=== PATIENT | male | born 1940 | race Caucasian/White ===

== ENCOUNTER 2018-01-06 08:19 | Inpatient (IN) | payer MEDICARE, OTHER ==
[~2018-01-06] VITALS: Ht 180.3 cm; Wt 110.2 kg
--- NOTE | ~2018-01-06 | HEMODYNAMI ---
PATIENT:ELISSA BABCOCK MEDICAL RECORD: [id number] : 40 LOCATION:[address] ADMISSION DATE: 01/06/18 Generatedon:01/08/201813:55 Patient name: ELISSA BABCOCK Patient #: [id number] SSN: : 1940 Date of study: 01/08/2018 Page: Of Hemodynamic Procedure Report Patient Data Patient Demographics Procedure consent was obtained First Name: ELISSA Gender: Male Last Name: YOKO : 1940 Patient #: [id number] Age: 77 year(s) Race: Unknown Additional ID: [id number] Contact details [address]: [address] [place] [address] State: [place] City: [place] Zip code: [address] Admission Admission Data Admission Date: 01/06/2018 Admission Time: 10:33 Room #: D.2120 Height (in.): 70.87 BSA: 2.28 (m2) Height (cm.): 180 BMI: 33.64 (kg/m2) Weight (lbs.): 240.31 Weight (kg.): 109 Procedure Procedure Types Cath Procedure Diagnostic Procedure Sedation Charges Moderate Sedation up to 45 minutes PCI Procedure Coronary Stent Coronary Stent Initial AMI/SVG/GRAVITY PROSPECTING OBSERVER HELPER PTCA or Stent SVG-BMS/KAYLEEN Initial Procedure Description Procedure Date Procedure Date: 01/08/2018 Procedure Start Time: 13:09 Procedure End Time: 13:48 Procedure Staff Name Function Mohan Toth MD Performing Physician Patrica Rea RT Monitor Rox Ordaz RN Nurse Olimpia Galo RT Scrub Procedure Data Cath Procedure Fluoroscopy Diagnostic fluoroscopy Total fluoroscopy Time: 9 time: 9 min min Diagnostic fluoroscopy Total fluoroscopy dose: dose: 1824 mGy 1824 mGy Contrast Material Contrast Material Type Amount (ml) Isovue 300 136 Entry Location Entry Primary Successful Side Size Upsize Upsize Entry Closure Succes sful Closure Location (Fr) 1 (Fr) 2 (Fr) Remarks Device Remarks Femoral Right 6 Fr Exoseal artery Short Estimated blood loss: 10 ml Procedure Complications No complications Procedure Medications Medication Administration Route Dosage Oxygen NC 2 l/min Lidocaine 2% added to field 20 Heparin Flush Bag added to field 2 bags (1000units/500ml NS) 0.9% NaCl I.V. 100 ml/hr Cardizem I.V. drip 2.5 mg/hr (125mg/125ml NS) Versed I.V. 1 mg Fentanyl I.V. 50 mcg Heparin Bolus I.V. 43387 units Versed I.V. 1 mg Fentanyl I.V. 50 mcg Nitroglycerin IC/IA I.C. 100 mcg Versed I.V. 1 mg Plavix P.O. 600 mg Hemodynamics Rest BSA: 2.28 (m2) O2 Consumption: Estimated: 284.39 (ml/min) O2 Consumption indexed : Estimated:124.73 (ml/min/m) Heart Rate: 97 (bpm) Snapshots Pre Cath Intra NCS Post Cath Vital Signs Time Heart Resp SPO2 etCO2 NIBP (mmHg) Rhythm Pain Sedation Rate (ipm) (%) (mmHg) Status Level (bpm) 13:02:40 93 22 98 25.6 168/79(133) A-Flutter 0 (11) 10(A) , No pain 13:07:04 79 18 93 0 142/64(104) A-Flutter 0 (11) 10(A) , No pain 13:11:14 84 14 94 8.2 142/83(97) A-Flutter 0 (11) 10(A) , No pain 13:15:30 72 12 98 0 130/77(102) A-Flutter 0 (11) 9(A) , No pain 13:20:31 90 17 99 11.3 161/116(133) A-Flutter 0 (11) 9(A) , No pain 13:24:43 96 17 98 1.5 127/57(91) A-Flutter 0 (11) 9(A) , No pain 13:29:01 99 19 95 26.3 137/61(81) A-Flutter 0 (11) 9(A) , No pain 13:33:13 108 19 98 24.8 137/86(127) A-Flutter 0 (11) 9(A) , No pain 13:37:29 98 18 95 17.3 114/72(95) A-Flutter 0 (11) 9(A) , No pain 13:41:30 97 19 98 25.6 132/90(105) A-Flutter 0 (11) 9(A) , No pain 13:45:38 90 23 98 26.3 152/96(112) A-Flutter 0 (11) 10(A) , No pain 13:54:18 90 16 99 28.6 145/77(124) A-Flutter 0 (11) 10(A) , No pain Medications Time Medication Route Dose Verified Delivered Reason Notes Effectiveness by by 12:58:23 Oxygen NC 2 Mohan Buffie used for l/min Carlos Ordaz RN procedure 12:58:30 Lidocaine 2% added 20ml Mohan Mohan for local to vial Carlos Toth MD anesthetic field 12:58:36 Heparin Flush added 2 Mohan Mohan used for Bag to bags Carlos Toth MD procedure (1000units/500ml field NS) 12:58:46 0.9% NaCl I.V. 100 Mohan Buffie Per physician ml/hr Carlos Ordaz RN 13:01:18 Cardizem I.V. 2.5 Mohan Buffie Per physician (125mg/125ml NS) drip mg/hr Carlos Ordaz RN 13:04:48 Versed I.V. 1 mg Mohan Buffie for sedation Carlos Ordaz RN 13:04:54 Fentanyl I.V. 50 Mohan Buffie for sedation mcg Carlos Ordaz RN 13:12:49 Heparin [place]us I.V. 96516 Mohan Buffie for verifi ed units Carlos Ordaz RN anticoagulation with dr toth 13:22:00 Versed I.V. 1 mg Mohan Buffie for sedation Carlos Ordaz RN 13:22:05 Fentanyl I.V. 50 Mohan Buffie for sedation mcg Carlos Ordaz RN 13:24:10 Nitroglycerin I.C. 100 Mohan Mohan for IC/IA mcg Carlos red 13:31:30 Versed I.V. 1 mg Mohan Buffie for sedation Carlos Ordaz RN 13:48:02 Plavix P.O. 600 Mohan Buffie for mg Carlos Ordaz RN antiplatelet therapy Procedure Log Time Note 12:37:47 Patient Height : 70.87 inches 12:37:47 Patient Weight : 240.31 lbs 12:38:22 Diagnostic Cath status Elective 12:38:24 Patrica Rea RT(R) sent for patient. Start room use. 12:38:26 Time tracking: Regular hours (M-F 7:00 - 5:00) 12:38:31 Plan of Care:Hemodynamics will remain stable., Cardiac rhythm will remain stable., Comfort level will be maintained., Respiratory function will remain adequate., Patient/ family verbilizes understanding of procedure., Procedure tolerated without complication., Recovers from procedure without complications.. 12:47:23 Patient received from Pre/Post Procedure Room to CCL 2 Alert and oriented. Tansferred to table in Supine position. 12:47:25 Warm blankets applied, and mel hugger turned on for patient comfort. 12:47:25 Correct patient and procedure confirmed by team. 12:47:27 Signed procedure consent form obtained from patient. 12:47:28 ECG and BP/O2 sat monitors applied to patient. 12:47:34 H&P Date Dictated: 01/06/2018 Within 30 days and on chart., H&P Addendum completed by physician on day of procedure. (MUST COMPLETE FOR ALL OUTPATIENTS). 12:47:45 Pre-procedure instructions explained to patient. 12:49:48 Family in waiting room. 12:49:50 Patient NPO since Midnight. 12:50:01 Is the patient allergic to Iodine/contrast media? No. 12:50:04 Was the patient premedicated? Yes 12:50:05 Is patient on blood thinner?No 12:50:12 Patient diabetic? Yes. 12:50:17 If diabetic: On Metformin? No 12:50:26 Snore? Yes 12:50:34 Sleep apnea? No 12:50:36 Deviated septum? No 12:50:37 Opens mouth fully? No 12:50:40 Sticks out tongue? Yes 12:50:49 Dentures? Yes tight 12:58:23 Oxygen 2 l/min NC was administered by Rox Ordaz RN; used for procedure; 12:58:30 Lidocaine 2% 20ml vial added to field was administered by Mohan Toth MD; for local anesthetic; 12:58:36 Heparin Flush Bag (1000units/500ml NS) 2 bags added to field was administered by Mohan Toth MD; used for procedure; 12:58:46 0.9% NaCl 100 ml/hr I.V. was administered by Rox Ordaz RN; Per physician; 12:59:29 Patient pain scale 0/10 ?. 12:59:35 IV patent on arrival in left forearm with 0.9% NaCl at KVO. 12:59:39 Lab results completed and on chart. 12:59:43 Right groin area was prepped with chlora-prep and draped in sterile fashion 12:59:44 Alarms reviewed by R. N. 12:59:45 Sharps counted by scrub and verified by R.N. 12:59:45 Physician paged 12:59:46 Physician arrived 12:59:47 --------ALL STOP TIME OUT------ 12:59:47 Final Timeout: patient, procedure, and site verified with staff and physician. All members of the team are in agreement. 12:59:49 Right groin site verified by team. 12:59:53 Physical assessment completed. ASA score P 2 - A patient with mild systemic disease as per Mohan Toth MD. 12:59:57 Sedation plan: IV Moderate Sedation Medication:Versed, Fentanyl 13:00:32 Use device set TOTH PCI 13:00:44 Use device set Femoral Dx 13:00:52 TUBING High Pressure Extension Tubing (Carlos) ([id number]) opened to sterile field. 13:00:53 INFLATOR Merit BasixCompak ([id number]) opened to sterile field. 13:00:57 BMW 300cm [place] 2 J wire ([id number]) opened to sterile field. 13:01:06 ACIST Syringe (00719) opened to sterile field. 13:01:07 Bag Decanter (2002S) opened to sterile field. 13:01:08 Medline Cath Pack ([id number]) opened to sterile field. 13:01:08 DIAGNOSTIC WIRE .035 260cm J wire (047105) opened to sterile field. 13:01:10 ACIST Hand Control (76936) opened to sterile field. 13:01:11 ACIST Manifold (34662) opened to sterile field. 13:01:12 Tegaderm 4 x 4 (1626W) opened to sterile field. 13:01:15 PERCUTANEOUS ENTRY 19GA needle opened to sterile field. 13:01:18 Cardizem (125mg/125ml NS) 2.5 mg/hr I.V. drip was administered by Rox Ordaz RN; Per physician; 13:01:22 Vital chart was started 13:01:28 Baseline sample Acquired. 13:01:31 Full Disclosure recording started 13:04:48 Versed 1 mg I.V. was administered by Rox Ordaz RN; for sedation; 13::54 Fentanyl 50 mcg I.V. was administered by Rox Ordaz RN; for sedation; 13:09:36 Procedure started. 13:09:45 Local anesthetic to right femoral artery with Lidocaine 2% by Mohan Toth MD.INITIAL ACCESS ONLY 13:09:57 A 6 Fr Short sheath was inserted into the Right Femoral artery 13:10:05 Proceeding to intervention. 13:10:38 Zero performed for pressure channel P1 13:10:56 Zero performed for pressure channel P1 13:12:17 Quick Combo opened to sterile field. 13:12:27 GUIDE 6FR AR 1.0 catheter ([id number]) opened to sterile field. 13:12:49 Heparin Bolus 15703 units I.V. was administered by Rox Ordaz RN; for anticoagulation; verified with dr toth 13:12:53 6 Fr AR1 guide catheter was inserted over the wire 13:13:35 BMW 300cm [place] 2 J wire ([id number]) opened to sterile field. 13:14:20 BMW wire advanced. 13:14:49 Wire advanced across lesion. 13:15:57 Study PCI Site: [place] LMCA has ?% stenosis. 13:16:22 Study PCI Site: Vein Graft dLAD has 80% stenosis. 13:18:49 Place stent Inflation Number: 1 A BLANCA OTW 2.25 x 15 stent ([id number]) was prepped and advanced across the Aorta Left -> Dist LAD. The stent was deployed at 12 [place] for 0:13 (min:sec). 13:19:26 Stent catheter was removed intact over wire. 13:21:13 Guide catheter removed. 13:21:42 LUGE Straight 300cm 0.014 guide wire ([id number]) opened to sterile field. 13:22:00 Versed 1 mg I.V. was administered by Rox Ordaz RN; for sedation; 13:22:02 6 Fr EBU3.5 guide catheter was inserted over the wire 13:22:05 Fentanyl 50 mcg I.V. was administered by Rox Ordaz RN; for sedation; 13:24:10 Nitroglycerin IC/IA 100 mcg I.C. was administered by Mohan Toth MD; for vasodilation; 13:24:11 LUGE wire advanced. 13:24:32 Study PCI Site: [place] LMCA has 90% stenosis. 13:26:54 Luge wire advanced to LAD and BMW to CX 13:30:46 Inflate balloon Inflation number: 1 A EMERGE OTW 3.0 x 20 balloon ([id number]) was prepped and advanced across the LMCA, then inflated to 10 MADONNA for 0:18 (min:sec). 13:31:30 Versed 1 mg I.V. was administered by Rox Ordaz RN; for sedation; 13:32:02 Balloon removed over the wire. 13:34:27 Luge wire removed from LAD 13:37:51 The BLANCA OTW 3.5 x 26 stent ([id number]) was advanced then removed because in body, not inflated 13:41:09 Place stent Inflation Number: 2 A BLANCA OTW 3.5 x 34 stent ([id number]) was prepped and advanced across the LMCA. The stent was deployed at 12 MADONNA for 0:16 (min:sec). 13:42:47 EXOSEAL 6Fr (EX600) opened to sterile field. 13:42:55 Stent catheter was removed intact over wire. 13:42:56 Wire removed. 13:42:57 Guide catheter removed. 13:44:20 Sheath removed intact; hemostasis achieved with Exoseal to the Right Femoral artery. 13:44:29 Procedure ended.(Physican Out) 13:44:43 Fluoroscopy time 09.00 minutes. 13:44:48 Fluoroscopy dose: 1824 mGy 13:44:48 Flurop Dose total: 1824 13:44:52 Contrast amount:Isovue 300 136ml. 13:44:53 Sharps counted by scrub and verified by R.N. 13:44:55 Insertion/operative site no bleeding no hematoma. 13:45:34 Post Procedure Pulses reassessed and unchanged 13:45:38 Post-procedure physical assessment completed. ASA score P 2 - A patient with mild systemic disease as per Mohan Toth MD. 13:45:46 Post procedure rhythm: unchanged. 13:45:50 Estimated blood loss: 10 ml 13:46:37 Procedure type changed to Cath procedure, Diagnostic procedure, Sedation Charges, Moderate Sedation up to 45 minutes, PCI procedure, Coronary Stent, Coronary Stent Initial, AMI/SVG/GRAVITY PROSPECTING OBSERVER HELPER PTCA or Stent, SVG-BMS/KAYLEEN Initial 13:46:41 Procedure and supply charges have been captured, reviewed, submitted and are correct. 13:47:54 Procedure Complication : No complications 13:47:57 Vital chart was stopped 13:48:02 Plavix 600 mg P.O. was administered by Rox Ordaz RN; for antiplatelet therapy; 13:48:03 Patient transfered to [facility] with Bed. 13:48:05 Procedure ended. 13:48:05 Full Disclosure recording stopped 13:48:09 End room use (Document Last) 13:48:22 ACC-PCI Only Patient was given prescriptions, or instructed by Mohan Toth MD to start/continue the following medications upon discharge: Plavix Intervention Summary Intervention Notes Time ActionType Lesion and Equipment Action# Pressure Duration Attributes Used 13:18:49 Place stent Aorta Left BLANCA OTW 2.25 1 12 00:13 -> Dist LAD x 15 stent ([id number]) 13:30:46 Inflate LMCA EMERGE OTW 1 10 00:18 balloon 3.0 x 20 balloon ([id number]) 13:37:51 Discard BLANCA OTW 3.5 Stent x 26 stent ([id number]) 13:41:09 Place stent LMCA BLANCA OTW 3.5 2 12 00:16 x 34 stent ([id number]) Device Usage Item Name Manufacture Quantity Catalog Number [facility] Lot# / Charge Number Stock Stock Serial# Code TUBING High Merit 1 [id number] 219063 39827 892278 10 Pressure Medical Extension Tubing (Carlos) ([id number]) INFLATOR Merit 1 [id number] 892128 872401 122303 15 Merit Medical BasixCompak (OF2873) BMW 300cm Maria 2 [id number] 438246 926127 319048 5 [place] 2 J Vascular wire ([id number]) ACIST Syringe Acist 1 89216 497032 324835 365685 20 (95792) Medical Systems Inc Bag Decanter Microtek 1 2001S 085059 61909 335188 5 (2001S) Medical Inc. Medline Cath Cardinal 1 [id number] 069485 16617 788458 5 Pack Health ([id number]) DIAGNOSTIC St Juan[place] 1 059517 875615 304232 921489 30 WIRE .035 260cm J wire (336370) ACIST Hand Acist 1 30867 486841 578400 633517 5 Control Medical (77771) Systems Inc ACIST Acist 1 73559 444801 267102 691561 5 Manifold Medical (85602) Systems Inc Tegaderm 4 x 3M 1 1626W 741575 472890 656903 5 4 (1626W) PERCUTANEOUS Cook Medical 1 J52550 955398 063875 5 ENTRY 19GA needle Quick Reissued 1 90396-332376 602914 075764 150836 5 GUIDE 6FR AR Medtronic 1 [id number] 845771 78991 974663 1 1.0 catheter (NU3QM57) BLANCA OTW 2.25 Medtronic 1 [id number] 655414 69964 560762 5 [id number] x 15 stent ([id number]) LUGE Straight [place] 1 [id number] 419814 906439 046148 5 300cm 0.014 Scientific guide wire (47046407) EMERGE OTW [place] 1 [id number] 547006 196857 194768 5 [id number] 3.0 x 20 Scientific balloon ([id number]) BLANCA OTW 3.5 Medtronic 1 [id number] 410312 3039261 086966 5 [id number] x 26 stent ([id number]) BLANCA OTW 3.5 Medtronic 1 [id number] 673938 6896649 761663 5 [id number] x 34 stent ([id number]) EXOSEAL 6Fr Cardinal 1 EX600 391788 111181 351989 10 (EX600) Health Signature Audit Media Stage Time Signature Unsigned Intra-Procedure 01/08/2018 Patrica Rea 1:55:28 PM RT(R) Signatures Monitor : Patrica Rea Signature : RT Date : Time : [address] [place] [address]
--- NOTE | ~2018-01-06 | HEMODYNAMI ---
PATIENT:ELISSA BABCOCK MEDICAL RECORD: [id number] : 40 LOCATION:[address] ADMISSION DATE: 01/06/18 Generatedon:01/07/201811:56 Patient name: ELISSA BABCOCK Patient #: [id number] SSN: : 1940 Date of study: 01/07/2018 Page: Of Hemodynamic Procedure Report Patient Data Patient Demographics Procedure consent was obtained First Name: ELISSA Gender: Male Last Name: YOKO : 1940 Patient #: [id number] Age: 77 year(s) Race: Unknown Additional ID: [id number] Contact details [address]: [address] [place] [address] State: [place] City: [place] Zip code: [address] Admission Admission Data Admission Date: 01/06/2018 Admission Time: 10:33 Room #: D.2120 Height (in.): 70.87 BSA: 2.28 (m2) Height (cm.): 180 BMI: 33.64 (kg/m2) Weight (lbs.): 240.31 Weight (kg.): 109 Procedure Procedure Types Cath Procedure Diagnostic Procedure [facility] w/Coronaries Sedation Charges Moderate Sedation up to 15 minutes Procedure Description Procedure Date Procedure Date: 01/07/2018 Procedure Start Time: 11:30 Procedure End Time: 11:54 Procedure Staff Name Function Mohan Gonzalez MD Performing Physician Patrica Rea RT Monitor Rox Ordaz RN Nurse Olimpia Galo RT Scrub Procedure Data Cath Procedure Fluoroscopy Diagnostic fluoroscopy Total fluoroscopy Time: 4.1 time: 4.1 min min Diagnostic fluoroscopy Total fluoroscopy dose: dose: 1006 mGy 1006 mGy Contrast Material Contrast Material Type Amount (ml) Isovue 300 116 Entry Location Entry Primary Successful Side Size Upsize Upsize Entry Closure Succes sful Closure Location (Fr) 1 (Fr) 2 (Fr) Remarks Device Remarks Femoral Right 5 Fr Exoseal artery Estimated blood loss: 10 ml Diagnostic catheters Device Type Used For End Catheter Placement MULTIPACK JL 4.0 5Fr Procedure catheter MULTIPACK 3DRC 5Fr Procedure catheter DIAGNOSTIC IMT 5Fr Procedure Catheter ([id number]) DIAGNOSTIC AR MOD 5Fr Procedure Catheter ([id number]) MULTIPACK Pigtail 5 Fr Procedure catheter Procedure Complications No complications Procedure Medications Medication Administration Route Dosage Oxygen NC 2 l/min Lidocaine 2% added to field 20 Heparin Flush Bag added to field 2 bags (1000units/500ml NS) 0.9% NaCl I.V. 100 ml/hr Versed I.V. 1 mg Fentanyl I.V. 50 mcg Versed I.V. 1 mg Fentanyl I.V. 50 mcg Hemodynamics Rest BSA: 2.28 (m2) O2 Consumption: Estimated: 284.57 (ml/min) O2 Consumption indexed : Estimated:124.81 (ml/min/m) Heart Rate: 97 (bpm) Pressure Samples Time Site Value (mmHg) Purpose Heart Use Rate(bpm) 11:44 LV 184/1,12 Snapshot 97 11:44 AO 132/85(103) Pullback 101 11:44 LV 214/15,82 Pullback 101 Gradients Valve Time Site 1 Site 2 Mean SEP/DFP Peak To Heart Use (mmHg) (sec/min) Peak Rate (mmHg) (bpm) Aortic 11:44 LV AO 34 21 82 101 214/15,82 132/85(103) Calculations Valve P-P Mean Valve Index Valve Source Name Gradient Area Flow (cm2) Aortic 82 34 82 34 Snapshots Pre Cath Intra NCS Post Cath Vital Signs Time Heart Resp SPO2 etCO2 NIBP (mmHg) Rhythm Pain Sedation Rate (ipm) (%) (mmHg) Status Level (bpm) 11:24:42 88 19 95 26.4 140/97(129) A-Flutter 0 (11) 10(A) , No pain 11:28:44 86 15 94 12 131/90(111) A-Flutter 0 (11) 10(A) , No pain 11:32:54 88 16 96 27.1 137/67(119) A-Flutter 0 (11) 9(A) , No pain 11:37:03 84 16 95 27.1 137/90(115) A-Flutter 0 (11) 9(A) , No pain 11:41:11 101 16 98 29.4 132/94(106) A-Flutter 0 (11) 9(A) , No pain 11:45:17 112 20 96 34.7 141/95(106) A-Flutter 0 (11) 9(A) , No pain 11:49:27 126 21 96 34.7 146/91(101) A-Flutter 0 (11) 10(A) , No pain 11:53:41 129 25 95 32.4 138/86(111) A-Flutter 0 (11) 10(A) , No pain Medications Time Medication Route Dose Verified Delivered Reason Notes Effe ctiveness by by 11:16:46 Oxygen NC 2 Mohan Buffie used for l/min Carlos Ordaz RN procedure 11:23:32 Lidocaine 2% added 20ml Mohan Mohan for local to vial Carlos Gonzalez MD anesthetic field 11:23:40 Heparin Flush added 2 Mohan Mohan used for Bag to bags Carlos Gonzalez MD procedure (1000units/500ml field NS) 11:23:49 0.9% NaCl I.V. 100 Mohan Buffie Per ml/hr Carlos Ordaz RN physician 11:27:17 Versed I.V. 1 mg Mohan Buffie for Carlos Ordaz RN sedation 11:27:23 Fentanyl I.V. 50 Mohan Buffie for mcg Carlos Ordaz RN sedation 11:30:39 Versed I.V. 1 mg Mohan Buffie for Carlos Ordaz RN sedation 11:30:42 Fentanyl I.V. 50 Mohan Buffie for mcg Carlos Ordaz RN sedation Procedure Log Time Note 10:44:46 Patient Height : 70.87 inches 10:44:52 Patient Weight : 240.31 lbs 10:55:24 Rox Ordaz RN sent for patient. Start room use. 10:55:25 Time tracking: Regular hours (M-F 7:00 - 5:00) 10:55:29 Plan of Care:Hemodynamics will remain stable., Cardiac rhythm will remain stable., Comfort level will be maintained., Respiratory function will remain adequate., Patient/ family verbilizes understanding of procedure., Procedure tolerated without complication., Recovers from procedure without complications.. 11:08:56 Patient received from Med II to [facility] 2 Alert and oriented. Tansferred to table in Supine position. 11:08:57 Warm blankets applied, and mel hugger turned on for patient comfort. 11:08:58 Correct patient and procedure confirmed by team. 11:09:00 Signed procedure consent form obtained from patient. 11:09:01 ECG and BP/O2 sat monitors applied to patient. 11:09:19 H&P Date Dictated: 01/06/2018 Within 30 days and on chart., H&P Addendum completed by physician on day of procedure. (MUST COMPLETE FOR ALL OUTPATIENTS). 11:09:22 Family in waiting room. 11:09:24 Patient NPO since Midnight. 11:09:33 Is the patient allergic to Iodine/contrast media? No. 11:09:34 Was the patient premedicated? Yes 11:09:56 Is patient on blood thinner?No 11:10:05 Patient diabetic? Yes. 11:16:46 Oxygen 2 l/min NC was administered by Rox Ordaz RN; used for procedure; 11:17:16 If diabetic: On Metformin? Yes 11:17:20 If on Metformin: Last Dose? 01/05/2018 11:17:26 Snore? Unknown 11:17:28 Sleep apnea? No 11:17:30 Deviated septum? No 11:17:31 Opens mouth fully? Yes 11:17:33 Sticks out tongue? Yes 11:17:40 Patient pain scale 0/10 ?. 11:17:51 IV patent on arrival in right hand with 0.9% NaCl at [facility]. 11:17:55 Lab results completed and on chart. 11:18:00 Right groin area was prepped with chlora-prep and draped in sterile fashion 11:18:02 Alarms reviewed by R. N. 11:18:03 Sharps counted by scrub and verified by R.N. 11:18:04 Physician paged 11:23:32 Lidocaine 2% 20ml vial added to field was administered by Mohan Gonzalez MD; for local anesthetic; 11:23:40 Heparin Flush Bag (1000units/500ml NS) 2 bags added to field was administered by Mohan Gonzalez MD; used for procedure; 11:23:49 0.9% NaCl 100 ml/hr I.V. was administered by Rox Ordaz RN; Per physician; 11:23:52 Vital chart was started 11:27:04 Physician arrived 11:27:04 --------ALL STOP TIME OUT------ 11:27:05 Final Timeout: patient, procedure, and site verified with staff and physician. All members of the team are in agreement. 11:27:07 Right groin site verified by team. 11:27:10 Physical assessment completed. ASA score P 2 - A patient with mild systemic disease as per Mohan Gonzalez MD. 11:27:14 Sedation plan: IV Moderate Sedation Medication:Versed, Fentanyl 11::17 Versed 1 mg I.V. was administered by Rox Ordaz RN; for sedation; 11::22 Zero performed for pressure channel P1 11:27:23 Fentanyl 50 mcg I.V. was administered by Rox Ordaz RN; for sedation; 11:30:01 A 5 Fr sheath was inserted into the Right Femoral artery 11::39 Versed 1 mg I.V. was administered by Rox Ordaz RN; for sedation; 11:30:39 Use device set Femoral Dx 11:30:42 Fentanyl 50 mcg I.V. was administered by Rox Ordaz RN; for sedation; 11:30:43 Procedure started. 11:30:43 Full Disclosure recording started 11:30:44 ACIST Syringe (28419) opened to sterile field. 11:30:44 Bag Decanter (2002S) opened to sterile field. 11:30:45 Medline Cath Pack ([id number]) opened to sterile field. 11:30:45 DIAGNOSTIC WIRE .035 260cm J wire (617912) opened to sterile field. 11:30:46 ACIST Hand Control (15714) opened to sterile field. 11:30:47 ACIST Manifold (61563) opened to sterile field. 11:30:47 DIAGNOSTIC Multipack 5Fr catheter set ([id number]) opened to sterile field. 11:30:48 Tegaderm 4 x 4 (1626W) opened to sterile field. 11:30:48 PERCUTANEOUS ENTRY 19GA needle opened to sterile field. 11:30:55 SHEATH Prelude 5Fr 0.035 (RLV-3W-57-035) opened to sterile field. 11:30:59 Local anesthetic to right femoral artery with Lidocaine 2% by Mohan Gonzalez MD.INITIAL ACCESS ONLY 11:32:58 A MULTIPACK JL 4.0 5Fr catheter was advanced over the wire and used for Procedure. 11:34:56 LCA angiography performed. 11:34:58 Catheter removed. 11:35:43 A MULTIPACK 3DRC 5Fr catheter was advanced over the wire and used for Procedure. 11:36:30 RCA angiography performed. 11:37:42 A DIAGNOSTIC IMT 5Fr Catheter ([id number]) was advanced over the wire and used for Procedure. 11:39:57 MCKEON not used 11:40:58 A DIAGNOSTIC AR MOD 5Fr Catheter ([id number]) was advanced over the wire and used for Procedure. 11:41:27 SVG to LAD angiography performed. 11:42:28 Catheter removed. 11:42:39 A MULTIPACK Pigtail 5 Fr catheter was advanced over the wire and used for Procedure. 11:43:52 LV gram done using MANZO 11:44:33 EF : 55 % 11:45:36 Aortic Root visualized 11:45:40 Catheter removed. 11:49:42 EXOSEAL 5Fr (EX500) opened to sterile field. 11:50:08 Sheath removed intact; hemostasis achieved with Exoseal to the Right Femoral artery. 11:51:25 Procedure ended.(Physican Out) 11:51:38 Fluoroscopy time 04.10 minutes. 11:51:42 Fluoroscopy dose: 1006 mGy 11:51:42 Flurop Dose total: 1006 11:51:52 Contrast amount:Isovue 300 116ml. 11:51:53 Sharps counted by scrub and verified by R.N. 11:51:59 Post-op/insertion site Right Femoral artery dressed using a 4 x 4 and Tegaderm. 11:52:43 Post-procedure physical assessment completed. ASA score P 2 - A patient with mild systemic disease as per Mohan Gonzalez MD. 11:53:17 Estimated blood loss: 10 ml 11:53:19 Post procedure instruction explained to patient.Patient verbalizes understanding. 11:53:51 Procedure type changed to Cath procedure, Diagnostic procedure, LHC, LHC w/Coronaries, Sedation Charges, Moderate Sedation up to 15 minutes 11:53:54 Procedure and supply charges have been captured, reviewed, submitted and are correct. 11:54:22 Procedure Complication : No complications 11:54:24 Vital chart was stopped 11:54:25 See physician's report for complete and final results. 11:54:26 Report given to Pre/Post Procedure Room. 11:54:30 Patient transfered to Pre/Post Procedure Room with Stretcher. 11:54:31 Procedure ended. 11:54:31 Full Disclosure recording stopped 11:54:35 End room use (Document Last) Device Usage Item Name Manufacture Quantity Catalog Number Hospital Part Current M inimal Lot# / Charge Number Stock Stock Serial# Code ACIST Syringe Acist 1 83702 344993 388656 519400 2 0 (46918) [employer] [facility] Bag Decanter Microtek 1 2001S 781425 38318 049672 5 () Medical Inc. Medline Cath Cardinal 1 [id number] 670221 72041 222200 5 Pack Health ([id number]) DIAGNOSTIC WIRE [place] 1 081474 178022 841272 394628 3 0 .035 260cm J wire (526744) ACIST Hand Acist 1 45704 703349 909464 388501 5 Control (77717) Medical Systems Inc ACIST Manifold Acist 1 57669 815062 674170 334042 5 (78329) [employer] [facility] DIAGNOSTIC Cardinal 1 [id number] 862587 10956 296448 3 0 Multipack 5Fr Health catheter set ([id number]) Tegaderm 4 x 4 3M 1 1626W 874605 322880 722669 5 (1626W) PERCUTANEOUS Cook Medical 1 [id number] 987455 302237 5 ENTRY 19GA needle SHEATH Prelude Merit 1 MNS-3O-18-035 114102 536730 231983 5 5Fr 0.035 Medical (BVP-8G-79-035) MULTIPACK JL Cardinal 1 337327 5 4.0 5Fr Health catheter MULTIPACK 3DRC Cardinal 1 383444 5 5Fr catheter Health DIAGNOSTIC IMT [place] 1 [id number] 443826 489527 29877 5 5Fr Catheter Scientific ([id number]) DIAGNOSTIC [place] Cardinal 1 [id number] 941233 977151 125215 1 5 MOD 5Fr Health Catheter (734267P) MULTIPACK Cardinal 1 272231 5 Pigtail 5 Fr Health catheter EXOSEAL 5Fr Cardinal 1 EX500 155360 891082 575776 1 0 (EX500) Health Signature Audit [place] Stage Time Signature Unsigned Intra-Procedure 01/07/2018 Patrica Rea 11:56:41 AM RT(R) Signatures Monitor : Patrica Rea Signature : RT Date : Time : [address] [place] [address]
[2018-01-06 09:12] LABS: HEMATOCRIT 41.5 % (42.0-54.0); HEMOGLOBIN 14.4 g/dL (13.5-17.5); MCH 30.6 pg (26.0-34.0); MCHC 34.7 g/dL (31.0-37.0); MCV 88.3 fL (80.0-100.0); PLATELET COUNT 148 10x3/uL (130-400); RDW 13.2 % (11.5-14.5); WBC 8.3 10x3/uL (4.8-10.8)
[2018-01-06 09:23] LABS: PROTIME 12.8 SECONDS (11.6-15.0)
[2018-01-06 09:24] LABS: APTT 55.4 SECONDS (22.8-39.4)
[2018-01-06 09:36] LABS: ALBUMIN 3.6 g/dL (3.4-5.0); ALKALINE PHOSPHATASE 80 U/L (46-116); ALT (SGPT) 22 U/L (10-68); BILIRUBIN - TOTAL 0.61 mg/dL (0.2-1.3); CALC OSMOLALITY 281 mosm/kg (275-300); CALCIUM 9.4 mg/dL (8.5-10.1); CARBON DIOXIDE 27.1 mmol/L (21.0-32.0); CHLORIDE - SERUM 101 mmol/L (98-107); CREATININE - SERUM 1.2 mg/dL (0.6-1.3); GLUCOSE 183 mg/dL (74-106); POTASSIUM - SERUM 3.9 mmol/L (3.5-5.1); PROTEIN - SERUM 7.2 g/dL (6.4-8.2); SODIUM 138 mmol/L (136-145); UREA NITROGEN 16 mg/dL (7-18); eGFR NON AFRICAN AMERICAN 62 mL/min (90-120)
[2018-01-06 10:01] LABS: CKMB 15.2 U/L (0.0-3.6)
[2018-01-06 10:35] VITALS: BP 163/73
[2018-01-06 11:10] VITALS: BP 127/74
[2018-01-06] MEDS ORDERED: BAYER CHEWABLE81 MG PO (12:44)
[2018-01-06] MEDS ORDERED: GLIMEPIRIDE1 MG PO (12:45)
[2018-01-06] MEDS ORDERED: HCTZ25 MG PO (12:46)
[2018-01-06] MEDS ORDERED: SYNTHROID100 MCG PO (12:47)
[2018-01-06] MEDS ORDERED: LANTUS INSULIN10 ML SC (12:47)
[2018-01-06] MEDS ORDERED: ZESTRIL40 MG PO (12:48)
[2018-01-06] MEDS ORDERED: METOPROLOL TART25 MG PO (12:49)
[2018-01-06] MEDS ORDERED: GLUCOPHAGE1000 MG PO (12:49)
[2018-01-06 13:05] VITALS: BP 128/72; Ht 180.3 cm; Wt 110.2 kg
[2018-01-06 15:47] VITALS: BP 120/68
[2018-01-06 20:35] VITALS: BP 110/59
[2018-01-07 00:40] LABS: BASOPHILS 0.3 % (0-2); EOSINOPHILS 4.2 % (0-7); HEMATOCRIT 42.2 % (42.0-54.0); HEMOGLOBIN 14.5 g/dL (13.5-17.5); IMMATURE GRANULOCYTES 0.5 % (0-5); LYMPHOCYTES 24.3 % (15-50); MCH 30.6 pg (26.0-34.0); MCHC 34.4 g/dL (31.0-37.0); MEAN PLATELET VOLUME 10.6 fL (7.4-10.4); NEUTROPHILS 58.7 % (40-80); PLATELET COUNT 148 10x3/uL (130-400); RBC 4.74 10x6/uL (4.20-6.10); RDW 13.3 % (11.5-14.5); WBC 8.8 10x3/uL (4.8-10.8)
[2018-01-07 00:54] LABS: ANION GAP 12.5 mmol/L (8-16); CALCIUM 9.4 mg/dL (8.5-10.1); CARBON DIOXIDE 29.5 mmol/L (21.0-32.0); CREATININE - SERUM 1.2 mg/dL (0.6-1.3)
[2018-01-07 00:59] LABS: INR 1.01 (0.85-1.17); PROTIME 12.9 SECONDS (11.6-15.0)
[2018-01-07 01:12] LABS: APTT 25.9 SECONDS (22.8-39.4)
[2018-01-07 01:41] VITALS: BP 129/68
[2018-01-07 04:00] VITALS: BP 120/65
[2018-01-07 09:22] VITALS: BP 128/71
[2018-01-07 16:24] VITALS: BP 120/74
[2018-01-07 19:52] LABS: BASOPHILS 0.3 % (0-2); EOSINOPHILS 5.3 % (0-7); HEMATOCRIT 40.5 % (42.0-54.0); IMMATURE GRANULOCYTES 0.8 % (0-5); MCH 30.6 pg (26.0-34.0); MCHC 34.6 g/dL (31.0-37.0); MCV 88.4 fL (80.0-100.0); MEAN PLATELET VOLUME 11.4 fL (7.4-10.4); MONOCYTES 8.8 % (2-11); NEUTROPHILS 57.8 % (40-80); PLATELET COUNT 128 10x3/uL (130-400); RBC 4.58 10x6/uL (4.20-6.10); RDW 13.4 % (11.5-14.5); WBC 7.4 10x3/uL (4.8-10.8)
[2018-01-07 21:58] VITALS: BP 122/74
[2018-01-08 00:56] VITALS: BP 141/73
[2018-01-08 06:10] VITALS: BP 155/85
[2018-01-08 07:01] LABS: HEMATOCRIT 42.2 % (42.0-54.0); HEMOGLOBIN 14.5 g/dL (13.5-17.5); MCH 30.6 pg (26.0-34.0); MCHC 34.4 g/dL (31.0-37.0); MEAN PLATELET VOLUME 11.1 fL (7.4-10.4); RBC 4.74 10x6/uL (4.20-6.10); RDW 13.4 % (11.5-14.5); WBC 7.9 10x3/uL (4.8-10.8)
[2018-01-08 08:25] VITALS: BP 138/67
[2018-01-08 11:54] VITALS: BP 133/77
[2018-01-08 20:00] VITALS: BP 138/67
[2018-01-08 23:33] VITALS: BP 143/82
[2018-01-09 04:00] VITALS: BP 148/82
[2018-01-09 07:45] VITALS: BP 150/83
[2018-01-09 08:27] LABS: HEMATOCRIT 40.9 % (42.0-54.0); MCH 30.8 pg (26.0-34.0); MCHC 34.2 g/dL (31.0-37.0); MCV 89.9 fL (80.0-100.0); MEAN PLATELET VOLUME 10.7 fL (7.4-10.4); RBC 4.55 10x6/uL (4.20-6.10); RDW 13.5 % (11.5-14.5)
== END 2018-01-09 12:30 | disposition home or self-care (01) | DRG 246 ==
LOC: D.ER 08:19 → D.EDHOLD 10:33 → D.M2 10:33 → D.EDHOLD 10:44 → D.M2 11:25
PROVIDERS: Family Medicine; Internal Medicine Cardiovascular Disease
PROC: B2121ZZ Fluoroscopy of Single Coronary Artery Bypass Graft using Low Osmolar Contrast (ICD-10-PCS; 2018-01-07)
PROC: B2151ZZ Fluoroscopy of Left Heart using Low Osmolar Contrast (ICD-10-PCS; 2018-01-07)
PROC: 4A023N7 Measurement of Cardiac Sampling and Pressure, Left Heart, Percutaneous Approach (ICD-10-PCS; 2018-01-07)
PROC: B2111ZZ Fluoroscopy of Multiple Coronary Arteries using Low Osmolar Contrast (ICD-10-PCS; principal; 2018-01-07 09:00)
PROC: 027135Z Dilation of Coronary Artery, Two Arteries with Two Drug-eluting Intraluminal Devices, Percutaneous Approach (ICD-10-PCS; 2018-01-08)
DX: I97.190 Other postprocedural cardiac functional disturbances following cardiac surgery (principal); I21.A9 Other myocardial infarction type; T82.218A Other mechanical complication of coronary artery bypass graft, initial encounter; I48.92 Unspecified atrial flutter; I25.10 Atherosclerotic heart disease of native coronary artery without angina pectoris; I48.0 Paroxysmal atrial fibrillation; I10 Essential (primary) hypertension; E11.9 Type 2 diabetes mellitus without complications; I35.0 Nonrheumatic aortic (valve) stenosis

== ENCOUNTER 2019-09-04 13:54 | Inpatient (IN) | payer MEDICARE, OTHER ==
[~2019-09-04] VITALS: Ht 180.3 cm; Wt 105.9 kg
[~2019-09-04 13:54] MED LIST: BAYER CHEWABLE81 MG PO; GLIMEPIRIDE1 MG PO; GLUCOPHAGE1000 MG PO; HCTZ25 MG PO; LANTUS INSULIN10 ML SC; METOPROLOL TART25 MG PO; SYNTHROID100 MCG PO; ZESTRIL40 MG PO
[2019-09-04 17:39] VITALS: BMI 34.9
[2019-09-04 18:16] VITALS: Ht 180.3 cm; Wt 105.9 kg
[2019-09-04 20:00] VITALS: BP 117/82
[2019-09-05] VITALS: BP 127/91
[2019-09-05 04:00] VITALS: BP 129/94
[2019-09-05 05:48] LABS: BASOPHILS 0.1 % (0-2); EOSINOPHILS 2.9 % (0-7); HEMATOCRIT 39.1 % (42.0-54.0); HEMOGLOBIN 12.8 g/dL (13.5-17.5); IMMATURE GRANULOCYTES 0.5 % (0-5); LYMPHOCYTES 14.5 % (15-50); MCH 29.1 pg (26.0-34.0); MCHC 32.7 g/dL (31.0-37.0); MCV 88.9 fL (80.0-100.0); MEAN PLATELET VOLUME 10.4 fL (7.4-10.4); MONOCYTES 7.8 % (2-11); NEUTROPHILS 74.2 % (40-80); PLATELET COUNT 172 10x3/uL (130-400); RDW 14.6 % (11.5-14.5); WBC 9.8 10x3/uL (4.8-10.8)
[2019-09-05 06:15] LABS: APTT 30.6 SECONDS (22.8-39.4); INR 1.32 (0.85-1.17); PROTIME 16.3 SECONDS (11.6-15.0)
[2019-09-05 06:16] LABS: ANION GAP 11.7 mmol/L (8-16); CALCIUM 8.8 mg/dL (8.5-10.1); CARBON DIOXIDE 27.7 mmol/L (21.0-32.0); CREATININE - SERUM 1.5 mg/dL (0.6-1.3); MAGNESIUM - SERUM 1.7 mg/dL (1.8-2.4); PHOSPHOROUS 4.6 mg/dL (2.5-4.9); POTASSIUM - SERUM 4.4 mmol/L (3.5-5.1); THYROID STIMULATING HORMONE 0.44 uIU/mL (0.36-3.74)
[2019-09-05 08:43] VITALS: BP 148/105
[2019-09-05] MEDS ORDERED: CRESTOR10 MG PO (08:55)
[2019-09-05] MEDS ORDERED: CARDIZEM 90 MG90 MG PO (08:56)
[2019-09-05 12:16] VITALS: BP 136/90
[2019-09-05 15:47] VITALS: BP 144/101
[2019-09-05 20:34] VITALS: BP 96/72
[2019-09-06 00:31] VITALS: BP 144/101
[2019-09-06 05:19] VITALS: BP 142/68
[2019-09-06 06:06] LABS: BASOPHILS 0.1 % (0-2); EOSINOPHILS 3.2 % (0-7); IMMATURE GRANULOCYTES 0.6 % (0-5); LYMPHOCYTES 16.6 % (15-50); MCH 29.5 pg (26.0-34.0); MCHC 33.3 g/dL (31.0-37.0); MCV 88.4 fL (80.0-100.0); MEAN PLATELET VOLUME 10.3 fL (7.4-10.4); MONOCYTES 7.7 % (2-11); NEUTROPHILS 71.8 % (40-80); PLATELET COUNT 173 10x3/uL (130-400); RBC 4.41 10x6/uL (4.20-6.10); RDW 14.6 % (11.5-14.5); WBC 10.3 10x3/uL (4.8-10.8)
[2019-09-06 06:20] LABS: ANION GAP 11.1 mmol/L (8-16); CALCIUM 9.2 mg/dL (8.5-10.1); CREATININE - SERUM 1.3 mg/dL (0.6-1.3); MAGNESIUM - SERUM 1.8 mg/dL (1.8-2.4); PHOSPHOROUS 4.8 mg/dL (2.5-4.9); POTASSIUM - SERUM 4.1 mmol/L (3.5-5.1)
[2019-09-06 09:55] VITALS: BP 153/104
[2019-09-06 14:12] VITALS: BP 127/89
[2019-09-06 16:00] VITALS: BP 137/93
[2019-09-06 21:17] VITALS: BP 114/82
[2019-09-07 00:26] VITALS: BP 119/92
[2019-09-07 05:41] LABS: BASOPHILS 0.2 % (0-2); EOSINOPHILS 3.5 % (0-7); HEMATOCRIT 37.4 % (42.0-54.0); HEMOGLOBIN 12.2 g/dL (13.5-17.5); IMMATURE GRANULOCYTES 1.1 % (0-5); LYMPHOCYTES 14.1 % (15-50); MCH 29.3 pg (26.0-34.0); MCHC 32.6 g/dL (31.0-37.0); MCV 89.7 fL (80.0-100.0); MEAN PLATELET VOLUME 10.3 fL (7.4-10.4); MONOCYTES 9.5 % (2-11); NEUTROPHILS 71.6 % (40-80); PLATELET COUNT 175 10x3/uL (130-400); RBC 4.17 10x6/uL (4.20-6.10); RDW 14.8 % (11.5-14.5); WBC 9.1 10x3/uL (4.8-10.8)
[2019-09-07 06:00] VITALS: BP 130/89
[2019-09-07 06:11] LABS: CALCIUM 8.4 mg/dL (8.5-10.1); CARBON DIOXIDE 29.9 mmol/L (21.0-32.0); CREATININE - SERUM 1.3 mg/dL (0.6-1.3); MAGNESIUM - SERUM 1.6 mg/dL (1.8-2.4); PHOSPHOROUS 4.4 mg/dL (2.5-4.9); POTASSIUM - SERUM 3.9 mmol/L (3.5-5.1)
[2019-09-07 11:29] VITALS: BP 120/81
[2019-09-07] MEDS ORDERED: COREG 3.1253.125 MG PO (14:57)
[2019-09-07] MEDS ORDERED: COREG6.25 MG PO (15:11)
[2019-09-07 15:19] VITALS: BP 124/80
[2019-09-07 20:00] VITALS: BP 132/87
[2019-09-08] VITALS: BP 114/67
[2019-09-08 04:00] VITALS: BP 124/84
[2019-09-08 05:48] LABS: BASOPHILS 0.2 % (0-2); EOSINOPHILS 3.4 % (0-7); HEMATOCRIT 41.3 % (42.0-54.0); HEMOGLOBIN 13.4 g/dL (13.5-17.5); IMMATURE GRANULOCYTES 1.5 % (0-5); LYMPHOCYTES 18.4 % (15-50); MCH 29.3 pg (26.0-34.0); MCHC 32.4 g/dL (31.0-37.0); MCV 90.4 fL (80.0-100.0); MEAN PLATELET VOLUME 11.4 fL (7.4-10.4); MONOCYTES 8.9 % (2-11); NEUTROPHILS 67.6 % (40-80); RBC 4.57 10x6/uL (4.20-6.10); WBC 8.9 10x3/uL (4.8-10.8)
[2019-09-08 05:51] LABS: CALCIUM 8.9 mg/dL (8.5-10.1); CARBON DIOXIDE 28.7 mmol/L (21.0-32.0); CREATININE - SERUM 1.2 mg/dL (0.6-1.3); MAGNESIUM - SERUM 1.7 mg/dL (1.8-2.4); PHOSPHOROUS 3.6 mg/dL (2.5-4.9)
[2019-09-08 05:52] LABS: PLATELET COUNT 138 10x3/uL (130-400); POTASSIUM - SERUM 4.7 mmol/L (3.5-5.1)
[2019-09-08 10:00] VITALS: BP 129/95
[2019-09-08] MEDS ORDERED: ENTRESTO 24 MG1 EACH PO (13:44)
[2019-09-08] MEDS ORDERED: AMIODARONE HCL200 MG PO (13:44)
[2019-09-08 14:04] VITALS: BP 124/84
--- NOTE | 2019-09-08 17:24 | MORECARE ---
CASE MANAGEMENT DISCHARGE SUMMARY PATIENT: ELISSA BABCOCK UNIT: [id number] ADM DATE: 09/04/19 AGE: 79 : 40 SEX: M ROOM/BED: D.2124 AUTHOR: AIXA PASCUAL PHYSICIAN: REFERRING PHYSICIAN: PINKY LYMAN MD DATE OF SERVICE: 09/08/19 Discharge Plan Patient Name: ELISSA BABCOCK [facility] [facility] 1940 Planned Disposition: Home Anticipated Discharge Date: 09/08/19 Discharge Date: 09/08/2019 Expected LOS: 4 Initial Reviewer: [email or web address] Initial Review Date: 09/08/2019 Generated: 09/08/19 6:24 pm Patient Name: ELISSA BABCOCK Page 36392 at 1724 All edits/amendments must be made on the electronic document DICTATION DATE: 09/08/191723 PREBOARDER: FARZANEH 09/08/191723 RPT#: [id number] DC DATE:09/08/19 STATUS: DIS IN [facility] [address] [place] [address] END OF REPORT
--- NOTE | 2019-09-08 17:33 | MORECARE ---
CASE MANAGEMENT DISCHARGE SUMMARY PATIENT: ELISSA BABCOCK UNIT: [id number] ADM DATE: 09/04/19 AGE: 79 : 40 SEX: M ROOM/BED: D.2124 AUTHOR: ANKUR,DOC PHYSICIAN: REFERRING PHYSICIAN: PINKY LYMAN MD DATE OF SERVICE: 09/08/19 Discharge Plan Patient Name: ELISSA BABCOCK Facility: [facility]:[place] : 1940 Planned Disposition: Home Anticipated Discharge Date: 09/08/19 Discharge Date: 09/08/2019 Expected LOS: 4 Initial Reviewer: [email or web address] Initial Review Date: 09/08/2019 Generated: 09/08/19 6:32 pm Comments DCP- Discharge Planning Updated by [email or web address]: Kirk Grant on 09/08/19 4:[address] Patient Name: ELISSA BABCOCK Admission Status: Elective Accout number: [id number] Admission Date: 09-04-2019 : 1940 Admission Diagnosis: Attending: PINKY LYMAN Current LOS: 4 Anticipated DC Date: 09-08-2019 Planned Disposition: Home Primary Insurance: MEDICARE A & B Discharge Planning Comments: CM MET WITH PT IN ROOM TO DISCUSS DISCHARGE PLANNING AND NEEDS. PT REPORTS LIVING AT HOME INDEPENDENTLY WITH HIS . PT HAS NO MEDICAL EQUIPMENT AND NO OUTSIDE SERVICES ASSISTING IN THE HOME. CM DISCUSSED AVAILABILITY OF HOME HEALTH, REHAB SERVICES AND MEDICAL EQUIPMENT. PT DENIES DISCHARGE NEEDS, REPORTS HIS WILL PICK HIM UP FOR DISCHARGE HOME. IMPORTANT MESSAGE FROM MEDICARE PROVIDED AND EXPLAINED. Segment Producer: Kirk Grant DCPIA - Discharge Planning Initial Assessment Updated by [email or web address]: Kirk Grant on 09/08/19 5:24 pm * Is the patient Alert and Oriented? Yes * How many steps to enter\exit or inside your home? * PCP [facility] * Pharmacy [facility] * Preadmission Environment Home with Family * ADLs Independent * Equipment None * Other Equipment NO MEDICAL EQUIPMENT PROVIDER PREFERENCE * List name and contact numbers for known caregivers / representatives who currently or will assist patient after discharge: ORACIO BABCOCK, SPOUSE, * Verbal permission to speak to the caregivers and representatives has been obtained from the patient. N/A * Community resources currently utilized None * Please name any agencies selected above. NONE * Additional services required to return to the preadmission environment? No * Can the patient safely return to the preadmission environment? Yes * Has this patient been hospitalized within the prior 30 days at any hospital? No Coverage Notice Reviewer: [email or web address] Deirdre Grant Notice Issued Date-Time: 09/08/2019 14:20 Notice Type: IM Discharge Notice Notice Delivered To: Patient Relationship to Patient: Database Report Writer Name: Delivery Method: HAND - Hand Delivered Cris Days: Prior Verbal Notification: Recipient Understood Notice: Yes Recipient Signature: Yes Med Rec Note Co-signed by Attending: Coverage Notice Comment: Last DP export: 09/08/19 4:24 pm Patient Name: ELISSA BABCOCK Page 09208 at 1733 All edits/amendments must be made on the electronic document DICTATION DATE: 09/08/191731 LEAD TECHNOLOGIST IN CYTOGENETICS: FARZANEH 09/08/191731 RPT#: [id number] DC DATE:09/08/19 STATUS: DIS IN [facility] [address] [place] [address] END OF REPORT
== END 2019-09-08 15:47 | disposition home or self-care (01) | DRG 308 ==
LOC: D.M2 13:54
PROVIDERS: ADMIT Internal Medicine Nephrology; ATTEND Internal Medicine Nephrology
DX: I48.0 Paroxysmal atrial fibrillation (principal); J18.9 Pneumonia, unspecified organism; I25.10 Atherosclerotic heart disease of native coronary artery without angina pectoris; I35.0 Nonrheumatic aortic (valve) stenosis; I10 Essential (primary) hypertension; E11.9 Type 2 diabetes mellitus without complications

== ENCOUNTER → 2019-10-18 18:12 | Outpatient (CLI) | payer MEDICARE, OTHER ==
[2019-09-04 18:16] VITALS: BMI 34.9
[~2019-10-18 18:12] MED LIST changes: +AMIODARONE HCL200 MG PO; +CARDIZEM 90 MG90 MG PO; +COREG 3.1253.125 MG PO; +COREG6.25 MG PO; +CRESTOR10 MG PO; +ENTRESTO 24 MG1 EACH PO
[2019-10-18 18:24] LABS: BASOPHILS 0.5 % (0-2); EOSINOPHILS 1.8 % (0-7); HEMATOCRIT 40.8 % (42.0-54.0); HEMOGLOBIN 12.6 g/dL (13.5-17.5); IMMATURE GRANULOCYTES 0.3 % (0-5); LYMPHOCYTES 19.8 % (15-50); MCH 28.8 pg (26.0-34.0); MCHC 30.9 g/dL (31.0-37.0); MCV 93.2 fL (80.0-100.0); MEAN PLATELET VOLUME 11.6 fL (7.4-10.4); NEUTROPHILS 67.6 % (40-80); PLATELET COUNT 158 10x3/uL (130-400); RBC 4.38 10x6/uL (4.20-6.10); RDW 16.7 % (11.5-14.5); WBC 6.1 10x3/uL (4.8-10.8)
== END | disposition home or self-care (01) ==
LOC: D.LABREF 18:12
PROVIDERS: ATTEND Internal Medicine Cardiovascular Disease
DX: R06.02 Shortness of breath (principal); R53.1 Weakness

== ENCOUNTER 2019-10-20 06:43 | Outpatient (CLI) | payer MEDICARE, OTHER ==
[~2019-10-20] VITALS: Ht 179.1 cm; Wt 101.4 kg
--- NOTE | ~2019-10-20 | HEMODYNAMI ---
PATIENT:ELISSA BABCOCK MEDICAL RECORD: [id number] : 40 [id number] ADMISSION DATE: 10/20/19 Generatedon:10/20/201910:48 Patient name: ELISSA BABCOCK Patient #: [id number] : 1940 Date of study: 10/20/2019 Page: Of Hemodynamic Procedure Report Patient Data Patient Demographics Procedure consent was obtained First Name: ELISSA Gender: Male Last Name: YOKO : 1940 Patient #: [id number] Age: 79 year(s) Race: SSN: [id number] Additional ID: [id number] Contact details [address]: [address] [place] [address] State: [place] City: [place] Zip code: [address] Past Medical History Allergies: No known allergies Admission Admission Data Admission Date: 10/20/2019 Admission Time: 6:43 Lab Results Lab Result Date: 10/20/2019 Lab Result Time: 0:00 Biochemistry Name Units Result Min Max BUN mg/dl 15 --(--*-)-- 7 18 Creatinine mg/dl 1.9 --(----)-* 0.6 1.3 eGFR ml/min 36 *-(----)-- 90 120 NONAFRICAN CBC Name Units Result Min Max Hematocrit % 40.7 -*(----)-- 42 54 Hemoglobin g/dl 12.7 -*(----)-- 13.5 17.5 Procedure Procedure Types Cath Procedure Diagnostic Procedure LHC LHC w/Coronaries w/Grafts Aortic Root Angiography Sedation Charges Moderate Sedation up to 30 minutes Procedure Description Procedure Date Procedure Date: 10/20/2019 Procedure Start Time: 10:21 Procedure End Time: 10:47 Procedure Staff Name Function Mohan Gonzalez MD Performing Physician Gracie Garcia RT Monitor Olimpia Galo RT Scrub Rox Ordaz RN Nurse Procedure Data Cath Procedure Fluoroscopy Diagnostic fluoroscopy Total fluoroscopy Time: 3.9 time: 3.9 min min Diagnostic fluoroscopy Total fluoroscopy dose: 565 dose: 565 mGy mGy Contrast Material Contrast Material Type Amount (ml) Isovue 370 67 Entry Location Entry Primary Successful Side Size Upsize Upsize Entry Closure Succes sful Closure Location (Fr) 1 (Fr) 2 (Fr) Remarks Device Remarks Femoral Right 5 Fr Exoseal artery Estimated blood loss: 5 ml Diagnostic catheters Device Type Used For End Catheter Placement MULTIPACK JL 4.0 5Fr Procedure catheter DIAGNOSTIC AR MOD 5Fr Procedure Catheter ([id number]) MULTIPACK Pigtail 5 Fr Procedure catheter Procedure Complications No complications Procedure Medications Medication Administration Route Dosage Oxygen etCO2 Nasal cannula 2 l/min Lidocaine 2% added to field 20 Heparin Flush Bag added to field 2 bags (1000units/500ml NS) 0.9% NaCl I.V. 100 ml/hr Versed I.V. 0.5 mg Fentanyl I.V. 25 mcg Versed I.V. 0.5 mg Fentanyl I.V. 25 mcg Versed I.V. 0.5 mg Versed I.V. 0.5 mg Hemodynamics Rest HGB: 12.7 (g/dl) Heart Rate: 104 (bpm) Snapshots Pre Cath Intra NCS Post Cath Vital Signs Time Heart Resp SPO2 etCO2 NIBP (mmHg) Rhythm Pain Sedation Rate (ipm) (%) (mmHg) Status Level (bpm) 10:10:03 105 26 99 11.3 131/101(114) NSR 0 (11) 10(A) , No pain 10:14:11 104 26 95 0 120/89(103) NSR 0 (11) 10(A) , No pain 10:18:19 104 25 98 21.1 116/88(100) NSR 0 (11) 10(A) , No pain 10:22:27 103 23 100 3 117/87(101) NSR 0 (11) 9(A) , No pain 10:26:35 103 20 96 0 111/81(92) NSR 0 (11) 9(A) , No pain 10:30:42 97 18 96 23.4 112/78(95) NSR 0 (11) 9(A) , No pain 10:34:50 97 20 99 26.4 117/78(95) NSR 0 (11) 9(A) , No pain 10:39:00 94 20 94 17.3 115/80(95) NSR 0 (11) 10(A) , No pain 10:43:08 94 18 0 124/81(92) NSR 0 (11) 10(A) , No pain 10:47:16 94 19 11.3 127/93(105) NSR 0 (11) 10(A) , No pain Medications Time Medication Route Dose Verified Delivered Reason Notes Eff ectiveness by by 10:09:29 Oxygen etCO2 2 Mohan Buffie used for Nasal l/min Carlos Ordaz RN procedure cannula 10:09:35 Lidocaine 2% added 20ml Mohan Mohan for local to vial Carlos Gonzalez MD anesthetic field 10:10:06 Heparin Flush added 2 Mohan Mohan used for Bag to bags Carlos Gonzalez MD procedure (1000units/500ml field NS) 10:10:14 0.9% NaCl I.V. 100 Mohan Buffie Per ml/hr Carlos Ordaz RN physician 10:18:20 Versed I.V. 0.5 Mohan Buffie for mg Carlos Ordaz RN sedation 10:18:26 Fentanyl I.V. 25 Mohan Buffie for mcg Carlos Ordaz RN sedation 10:22:29 Versed I.V. 0.5 Mohan Buffie for mg Carlos Ordaz RN sedation 10:22:32 Fentanyl I.V. 25 Mohan Buffie for mcg Carlos Ordaz RN sedation 10:28:51 Versed I.V. 0.5 Mohan Buffie for mg Carlos Ordaz RN sedation 10:37:46 Versed I.V. 0.5 Mohan Buffie for mg Carlos Ordaz RN sedation Procedure Log Time Note 9:43:18 Informed consent obtained and on chart 9:43:24 Diagnostic Cath Status : Elective 9:43:43 Procedure Status Elective Heart Cath (OP). 9:43:46 Rox Ordaz RN sent for patient. Start room use. 9:43:47 Time tracking: Regular hours (M-F 7:00 - 5:00) 9:43:55 Plan of Care:Hemodynamics will remain stable., Cardiac rhythm will remain stable., Comfort level will be maintained., Respiratory function will remain adequate., Patient/ family verbilizes understanding of procedure., Procedure tolerated without complication., Recovers from procedure without complications.. 9:56:42 Lab Result : eGFR NONAFRICAN 36 ml/min 9:56:42 Lab Result : Hemoglobin 12.7 g/dl 9::42 Lab Result : BUN 15 mg/dl 9::42 Lab Result : Creatinine 1.9 mg/dl 9:56:42 Lab Result : Hematocrit 40.7 % 9:59:10 Risk of Mortality: 0.4 9:59:13 Risk of blood transfusion: 0.6 9:59:15 Risk of JULIET: 2.0 9:59:17 Alarms reviewed by R. N. 9:59:18 Sharps counted by scrub and verified by R.N. 9:59:21 Stress Test: no; N/A ? 9:59:27 Lab results completed and on chart. 9:59:42 H&P Date Dictated: 10/18/2019 Within 30 days and on chart.. 9:59:43 Pre-procedure instructions explained to patient. 9:59:44 Pre-op teaching completed and patient verbalized understanding. 9:59:46 Family unavailable. 9:59:47 Patient NPO since Midnight. 9:59:56 Patient allergic to No known allergies 10:02:33 Patient received from Pre/Post Procedure Room to CCL 1 Alert and oriented. Tansferred to table in Supine position. 10:06:41 Vital chart was started 10:08:44 Warm blankets applied, and mel hugger turned on for patient comfort. 10:08:44 Correct patient and procedure confirmed by team. 10:08:45 ECG and BP/O2 sat monitors applied to patient. 10:08:46 Full Disclosure recording started 10:08:51 Is the patient allergic to Iodine/contrast media? No. 10:08:53 Was the patient premedicated? N/A 10:08:55 Is patient on blood thinner?No 10:08:57 Patient diabetic? Yes. 10:08:59 If diabetic: On Metformin? Yes 10:09:16 If on Metformin: Last Dose? 10/18/2019 10:09:18 ----Pre-sedation anethsthesia assessment.---- 10:09:21 Previous problem with sedation/anesthesia? No ? 10:09:22 Snore? No 10:09:26 Sleep apnea? No 10:09:28 Deviated septum? No 10:09:29 Oxygen 2 l/min etCO2 Nasal cannula was administered by Rox Ordaz RN; used for procedure; Verbal order read back and verified. 10:09:29 Opens mouth fully? Yes 10:09:30 Sticks out tongue? Yes 10:09:32 Airway obstruction? No ? 10:09:35 Lidocaine 2% 20ml vial added to field was administered by Mohan Gonzalez MD; for local anesthetic; Verbal order read back and verified. 10:09:36 Dentures? Yes tight 10:09:44 Pre procedure: right dorsailis pedis pulse 1+ Palpable, but thready & weak; easily obliterated 10:09:46 Patient pain scale 0/10 ?. 10:09:52 IV patent on arrival in left antecubital with 0.9% NaCl at [facility]. 10:09:56 Right groin area was prepped with chlora-prep and draped in sterile fashion 10:09:59 Use device set Femoral Dx 10:10:01 ACIST Syringe (15521) opened to sterile field. 10:10:01 Bag Decanter (2002S) opened to sterile field. 10:10:02 Medline Cath Pack ([id number]) opened to sterile field. 10:10:03 ACIST Hand Control (53740) opened to sterile field. 10:10:03 ACIST Manifold (05570) opened to sterile field. 10:10:04 DIAGNOSTIC Multipack 5Fr catheter set ([id number]) opened to sterile field. 10:10:05 SHEATH 5FR [place] ([id number]) opened to sterile field. 10:10:06 Heparin Flush Bag (1000units/500ml NS) 2 bags added to field was administered by Mohan Gonzalez MD; used for procedure; Verbal order read back and verified. 10:10:06 EMERALD Guide Wire (605-069) opened to sterile field. 10:10:14 0.9% NaCl 100 ml/hr I.V. was administered by Rox Ordaz RN; Per physician; Verbal order read back and verified. 10:10:14 Baseline sample Acquired. 10:10:28 Rhythm: sinus tachycardia 10:17:34 --------ALL STOP TIME OUT------ 10:17:34 Final Timeout: patient, procedure, and site verified with staff and physician. All members of the team are in agreement. 10:17:36 Right groin site verified by team. 10:17:40 Fire Safety Assessment: A--An alcohol-based skin anteseptic being used preoperatively., C--Open oxygen or nitrous oxide is being used., D--An ESU, laser, or fiber-optic light is being used. 10:17:44 Physical assessment completed. ASA score P 2 - A patient with mild systemic disease as per Mohan Gonzalez MD. 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 10:18:06 Maximum allowable contrast dose (3.7 X eGFR X 0.75)100 ml. 10:18:11 Sedation plan: IV Moderate Sedation Medication:Versed, Fentanyl 10:18:20 Versed 0.5 mg I.V. was administered by Rox Ordaz RN; for sedation; Verbal order read back and verified. 10:18:26 Fentanyl 25 mcg I.V. was administered by Rox Ordaz RN; for sedation; Verbal order read back and verified. 10:20:22 Procedure started. 10:21:51 Local anesthetic to right femoral artery with Lidocaine 2% by Mohan Gonzalez MD.INITIAL ACCESS ONLY 10:22:29 Versed 0.5 mg I.V. was administered by Rox Ordaz RN; for sedation; Verbal order read back and verified. 10:22:32 Fentanyl 25 mcg I.V. was administered by Rox Ordaz RN; for sedation; Verbal order read back and verified. 10:26:27 MICROPUNCTURE 4FR [place] (Q76327) opened to sterile field. 10:26:43 Access obtained with 4Fr micropunture. 10:28:51 Versed 0.5 mg I.V. was administered by Rox Ordaz RN; for sedation; Verbal order read back and verified. 10:30:45 J WIRE INSERTED FOR SHEATH ACCESS. 10:31:34 A 5 Fr sheath was inserted into the Right Femoral artery 10:32:26 A MULTIPACK JL 4.0 5Fr catheter was advanced over the wire and used for Procedure. 10:33:09 LCA angiography performed. 10:33:12 Injector settings: Ml/sec: 3, Volume: 6, 10:34:16 Catheter exchanged over wire. 10:34:44 A DIAGNOSTIC AR MOD 5Fr Catheter ([id number]) was advanced over the wire and used for Procedure. 10:35:53 RCA angiography performed. 10:35:56 Injector settings: Ml/sec: 3, Volume: 6, 10:36:05 ACCDominant side:Right 10:36:26 SVG to LAD angiography performed. 10:36:56 Injector settings: Ml/sec: 3, Volume: 6, 10:37:11 Catheter exchanged over wire. 10:37:46 Versed 0.5 mg I.V. was administered by Rox Ordaz RN; for sedation; Verbal order read back and verified. 10:38:16 A MULTIPACK Pigtail 5 Fr catheter was advanced over the wire and used for Procedure. 10:40:19 Aortic Root visualized 10:41:43 Catheter removed. 10:41:55 Fluoroscopy time 03.90 minutes. 10:42:00 Fluoroscopy dose: 565 mGy 10:42:00 Flurop Dose total: 565 10:42:08 Dose Area Product 65172 mGy/cm. 10:42:12 Contrast amount:Isovue 370 67ml. 10:42:16 Maximum allowable dose exceeded? No. 10:42:28 EXOSEAL 5Fr (EX500) opened to sterile field. 10:42:33 Sheath removed intact; hemostasis achieved with Exoseal to the Right Femoral artery. 10:42:40 Procedure ended.(Physican Out) 10:42:42 Sharps counted by scrub and verified by R.N. 10:42:51 Post-op/insertion site Right Femoral artery dressed using a 4 x 4 and Tegaderm. 10:42:56 Post right femoral artery:stable, soft, clean and dry 10:42:59 Post Procedure Pulses reassessed and unchanged 10:43:02 Post procedure: right dorsailis pedis pulse 1+ Palpable, but thready & weak; easily obliterated. 10:43:05 Post-procedure physical assessment completed. ASA score P 2 - A patient with mild systemic disease as per Mohan Gonzalez MD. 10:43:09 Post procedure rhythm: unchanged. 10:43:13 Estimated blood loss: 5 ml 10:43:39 Post procedure instruction explained to patient.Patient verbalizes understanding. 10:43:40 Patient needs reinforcement of post procedure teaching. 10:46:29 Procedure type changed to Cath procedure, Diagnostic procedure, LHC, LHC w/Coronaries w/Grafts, Aortic Root Angiography, Sedation Charges, Moderate Sedation up to 30 minutes 10:47:03 Procedure and supply charges have been captured, reviewed, submitted and are correct. 10:47:09 Procedure Complication : No complications 10:47:11 Vital chart was stopped 10:47:13 [facility] Findings: MVD- MD will discuss options w/ pt 10:47:15 Operative report dictated upon procedure completion. 10:47:15 See physician's report for complete and final results. 10:47:18 Report given to Pre/Post Procedure Room. 10:47:21 Patient transfered to Pre/Post Procedure Room with Stretcher. 10:47:26 Procedure ended. 10:47:26 Full Disclosure recording stopped 10:47:34 End room use (Document Last) 10:47:44 End room use (Document Last) 10:48:40 End room use (Document Last) Device Usage Item Name Manufacture Quantity Catalog Hospital Part Current Minimal Lot# / Number Charge Number Stock Stock Serial# Code ACIST Syringe Acist 1 50917 580328 700698 [id number] 20 (14027) Medical Systems Inc Bag Decanter Microtek 1 2001S 160343 92948 799930 5 (2001S) Medical Inc. Medline Cath Medline 1 [id number] 740029 98980 130687 5 Pack ([id number]) ACIST Hand Acist 1 38497 727869 854822 057245 5 Control Medical (15903) Systems Inc ACIST Acist 1 20516 702201 115032 934816 5 Manifold Medical (52581) Systems Inc DIAGNOSTIC Cardinal 1 [id number] 351905 56626 991964 30 Multipack 5Fr Health catheter set ([id number]) SHEATH 5FR Terumo 1 [id number] 748422 981809 645905 5 [place] (CCX585) EMERALD Guide Cardinal 1 502-455 564004 385526 327829 5 Wire Health (502-455) MICROPUNCTURE Wiztango Medical 1 [id number] 462827 214046 389581 5 4FR [place] ([id number]) MULTIPACK JL Cardinal 1 366879 5 4.0 5Fr Health catheter DIAGNOSTIC AR Cardinal 1 [id number] 675819 862454 994893 15 MOD 5Fr Health Catheter ([id number]) MULTIPACK Cardinal 1 513797 5 Pigtail 5 Fr Health catheter EXOSEAL 5Fr Cardinal 1 EX500 268207 880826 338610 10 (EX500) Health Signature Audit [place] Stage Time Signature Unsigned Intra-Procedure 10/20/2019 Gracie Garcia 10:47:44 AM RT(R) Intra-Procedure 10/20/2019 Rox Ordaz RN 10:48:40 AM Intra-Procedure 10/20/2019 Mohan Gonzalez MD 10:48:55 AM [place] [id number]
[2019-10-20 07:52] VITALS: BP 115/82; Ht 179.1 cm; Wt 101.4 kg
[2019-10-20 07:55] LABS: BASOPHILS 0.3 % (0-2); EOSINOPHILS 1.9 % (0-7); HEMATOCRIT 40.7 % (42.0-54.0); HEMOGLOBIN 12.7 g/dL (13.5-17.5); IMMATURE GRANULOCYTES 0.3 % (0-5); LYMPHOCYTES 17.4 % (15-50); MCH 28.8 pg (26.0-34.0); MCHC 31.2 g/dL (31.0-37.0); MCV 92.3 fL (80.0-100.0); MEAN PLATELET VOLUME 10.7 fL (7.4-10.4); MONOCYTES 8.8 % (2-11); NEUTROPHILS 71.3 % (40-80); PLATELET COUNT 154 10x3/uL (130-400); RBC 4.41 10x6/uL (4.20-6.10); RDW 16.6 % (11.5-14.5); WBC 6.3 10x3/uL (4.8-10.8)
[2019-10-20 08:04] LABS: CALCIUM 8.6 mg/dL (8.5-10.1); CARBON DIOXIDE 22.6 mmol/L (21.0-32.0); CHOL - HDL RATIO 2.5 ratio (2.3-4.9); CREATININE - SERUM 1.9 mg/dL (0.6-1.3); POTASSIUM - SERUM 4.6 mmol/L (3.5-5.1)
--- NOTE | 2019-10-20 10:58 | NUR ---
PT ARRIVED BY STRETCHER. PLACED ON MONITORS. ASSESSMENT COMPLETED. VSS. CALL LIGHT WITHIN REACH.
--- NOTE | 2019-10-20 11:15 | NUR ---
PT RESTING COMFORTABLY. VSS. RIGHT GROIN DRESSING C/D/I. NO S/S OF HEMATOMA NOTED.
--- NOTE | 2019-10-20 11:45 | NUR ---
PT RESTING COMFORTABLY. VSS. RIGHT GROIN DRESSING C/D/I. NO S/S OF HEMATOMA NOTED. CALL LIGHT WITHIN REACH. VSS AT THIS TIME.
--- NOTE | 2019-10-20 12:30 | NUR ---
RIGHT GROIN DRESSING C/D/I. NO S/S OF HEMATOMA NOTED. CALL LIGHT WITHIN REACH. VSS. HEAD OF BED INC TO 30 DEGREES. TOLERATED WELL. SET UP WITH DRINK AND SANDWICH TRAY. DENIES NAUSEA/PAIN AT THIS TIME.
--- NOTE | 2019-10-20 13:00 | NUR ---
CALLED BED CONTROL AT [facility]. THEY STATE THEY ARE NOT AWARE OF TRANSFER, BUT THEY TOOK OUR INFORMATION AND THEY WILL CALL ME BACK. PT UPDATED ON PLAN OF CARE.
--- NOTE | 2019-10-20 13:10 | NUR ---
RIGHT GROIN DRESSING C/D/I. NO S/S OF HEMATOMA NOTED. PT UP WITH ASSIST AND AMBULATED TO RESTROOM. ASSIST NEEDED. VERY SHORT OF BREATH UPON EXERTION. BACK TO ROOM AND HR ST RATE 104. BP 102/68. O2 SAT 92% ON 2LNC AND RESP 26. CALL LIGHT WITHIN REACH.
--- NOTE | 2019-10-20 13:30 | NUR ---
[facility] BED CONTROLLED CALLED AND PT GIVEN ROOM CVICU BED 2. UNIT IS UNABLE TO ACCEPT REPORT AT THIS TIME. WILL CALL BACK IN ABOUT 45 MINS PER NURSE REQUEST. PT STABLE. VSS STABLE. PT'S CALLED AND UPDATED HER ON PT'S STATUS AND PLAN OF CARE.
--- NOTE | 2019-10-20 13:45 | NUR ---
PT RESTING COMFORTABLY. VSS. RIGHT GROIN DRESSING C/D/I. NO S/S OF HEMATOMA NOTED.
--- NOTE | 2019-10-20 14:35 | NUR ---
REPORT CALLED TO GRISEL MARTINEZ AT [facility]. PHONE NUMBER [phone].
--- NOTE | 2019-10-20 14:49 | NUR ---
[facility] CALLED. THEY REPORT THEY WILL HAVE SOMEONE TO PICK HIM UP IN THE NEXT 30-45 MINS. PT'S CALLED AND UPDATED.
--- NOTE | 2019-10-20 15:49 | NUR ---
PT ASSISTED TO STRETCHER. EMS AT BEDSIDE. NO S/S OF DISTRESS NOTED. COPY OF CHART GIVEN TO EMS. PT TAKEN DOWN TO AMBULANCE BY STRETCHER. ABLE TO SEE HIS AND HE GAVE HER HIS SHIRT AND SHOES TO TAKE HOME. PT IS WEARING HIS PAJAMA PANTS. FAMILY AWARE OF PLAN OF CARE AND GIVEN PHONE NUMBERS TO NURSES STATION AT [facility].
== END 2019-10-20 15:49 | disposition other institution (70) ==
LOC: D.CATH 06:43
PROVIDERS: ATTEND Internal Medicine Cardiovascular Disease
DX: I35.0 Nonrheumatic aortic (valve) stenosis (principal); I25.119 Atherosclerotic heart disease of native coronary artery with unspecified angina pectoris; R06.00 Dyspnea, unspecified; I48.0 Paroxysmal atrial fibrillation; E78.5 Hyperlipidemia, unspecified; I10 Essential (primary) hypertension

== ENCOUNTER → 2020-04-23 09:59 | Outpatient (CLI) | payer MEDICARE, OTHER ==
[2019-10-20 07:52] VITALS: BMI 31.6
== END | disposition home or self-care (01) ==
LOC: D.HCCECHO 09:59
PROVIDERS: ATTEND Internal Medicine Cardiovascular Disease
DX: I35.0 Nonrheumatic aortic (valve) stenosis (principal)